=== PATIENT | female | born 1990 | race Caucasian/White ===

== ENCOUNTER 2019-10-18 16:23 | Emergency (ER) | payer BC, OTHER ==
[2019-10-18] MEDS ORDERED: Ondansetron PF 4 MG/2 ML Vial ONE ×2 (16:57→17:59)
[2019-10-18] MEDS ORDERED: Sodium Chloride 0.9% 1,000 ML ONE (16:57)
[2019-10-18] MEDS ORDERED: Ibuprofen 100 MG/5 ML UDCUP ONE (16:57)
[2019-10-18 17:35] LABS: BHCG - Serum Negative (NEGATIVE); Pregs Control Bar Appear? YES (CONTROL BAR)
[2019-10-18 17:44] LABS: ALT (SGPT) 27 U/L (8-55); AST (SGOT) 26 U/L (5-34); Albumin 4.3 g/dL (3.5-5.0); Alkaline Phosphatase 51 U/L (40-110); Anion Gap 15 mmol/L (10-20); BUN (Urea Nitrogen) 10 mg/dL (7.0-18.7); Bilirubin, Total 0.4 mg/dL (0.2-1.2); Calc. Creatinine Clearance 0 mL/min (70-130); Calcium 9.2 mg/dL (7.8-10.44); Carbon Dioxide 23 mmol/L (22-29); Chloride 101 mmol/L (98-107); Estimated GFR-MDRD 88; Globulin 3.5 g/dL (2.4-3.5); Glucose 91 mg/dL (70-105); Potassium 3.8 mmol/L (3.5-5.1); Protein, Total 7.8 g/dL (6.0-8.3); Sodium 135 mmol/L (136-145)
[2019-10-18 18:04] LABS: #Lymphocytes 0.9 thou/uL (1.20-3.40); #Monocytes 0.3 thou/uL (0.11-0.59); #Neutrophils 3.7 thou/uL (1.40-6.50); %Basophils 0.7 % (0.0-1.0); %Eosinophils 0.4 % (0.0-10.0); %Lymphocytes 18.4 % (21.0-51.0); %Monocytes 6.7 % (0.0-10.0); %Neutrophils 73.9 % (42.0-75.0); Hemoglobin 14.8 g/dL (12.0-16.0); Mean Corpuscular HGB CONC 33.4 g/dL (32.0-36.0); Mean Corpuscular Volume 86.7 fL (78.0-98.0); Mean Platelet Volume 10.7 fL (7.4-10.4); Platelet Count 219 thou/uL (130-400); RBC Distribution Width 10.6 % (11.5-14.5)
[2019-10-18 18:08] LABS: Bilirubin Negative (Negative); Blood, Urine Trace (Negative); Clarity Clear (Clear); Glucose, Urine (Dipstick) Negative (Negative); Ketone, Urine Negative (Negative); Leukocyte Negative (Negative); Nitrite Negative (Negative); Protein, Urine (Dipstick) Negative (Neg-Trace); Urobilinogen 0.2 mg/dL (Less than 2)
[2019-10-18 18:17] LABS: Bacteria/HPF 2+ HPF (None Seen); RBC/HPF 0-3 HPF (0-3); Specific Gravity, Urine 1.025 (1.005-1.030); WBC/HPF 0-3 HPF (0-3)
[2019-10-19 13:15] LABS: SARS-CoV-2 MS2 Positive; SARS-CoV-2 N Gene Negative; SARS-CoV-2 S Gene Negative; SARS-CoV-2 by NAA Not Detected (NotDetected); SARS-CoV-2 orf1ab Negative
== END 2019-10-18 18:19 | disposition home or self-care (01) ==
LOC: NAV ERS 16:23
DX: E86.0 Dehydration (principal); R50.9 Fever, unspecified; Z20.828 Contact with and (suspected) exposure to other viral communicable diseases; F90.9 Attention-deficit hyperactivity disorder, unspecified type
CPT/HCPCS: 80053; 81003; 81015; 84703; 85025; 87635; 94760; 96360; J2405; J7050; U0003

== ENCOUNTER 2019-10-25 16:22 | Inpatient (IN) | payer BC, OTHER ==
[2019-10-25 17:05] VITALS: BMI 34.0
[2019-10-25] MEDS ORDERED: Ondansetron PF 4 MG/2 ML Vial IVP PRN (18:11)
[2019-10-25] MEDS: Dextrose 5 % And 0.9 % NaCl 1,000 ML IV SCH (19:26)
[2019-10-26] MEDS: Ondansetron ODT 4 MG TAB PO SCH ×2 (00:01→05:31)
[2019-10-26] MEDS: Dextrose 5 % And 0.9 % NaCl 1,000 ML IV SCH ×2 (02:40→10:02)
[2019-10-26 06:16] LABS: #Basophils 0.1 thou/uL (0.0-0.2); #Eosinphils 0.1 thou/uL (0.0-0.7); #Lymphocytes 1.6 thou/uL (1.20-3.40); #Monocytes 0.6 thou/uL (0.11-0.59); #Neutrophils 3.1 thou/uL (1.40-6.50); %Eosinophils 2.1 % (0.0-10.0); %Monocytes 10.7 % (0.0-10.0); %Neutrophils 57.2 % (42.0-75.0); Hemoglobin 11.9 g/dL (12.0-16.0); Mean Corpuscular Hemoglobin 28.9 pg (27.0-31.0); Mean Corpuscular Volume 87.5 fL (78.0-98.0); Mean Platelet Volume 11.1 fL (7.4-10.4); Platelet Count 263 thou/uL (130-400); RBC Distribution Width 10.5 % (11.5-14.5); Red Blood Cell (RBC) Count 4.12 mill/uL (4.20-5.40); White Blood Cell (WBC) Count 5.4 thou/uL (4.8-10.8)
[2019-10-26 06:21] LABS: ALT (SGPT) 109 U/L (8-55); AST (SGOT) 75 U/L (5-34); Albumin 3.4 g/dL (3.5-5.0); Alkaline Phosphatase 37 U/L (40-110); Anion Gap 12 mmol/L (10-20); BUN (Urea Nitrogen) 6 mg/dL (7.0-18.7); Bilirubin, Total 0.4 mg/dL (0.2-1.2); Calc. Creatinine Clearance 147 mL/min (70-130); Calcium 8.3 mg/dL (7.8-10.44); Carbon Dioxide 24 mmol/L (22-29); Chloride 108 mmol/L (98-107); Estimated GFR-MDRD Greater than 90; Globulin 2.5 g/dL (2.4-3.5); Glucose 97 mg/dL (70-105); Potassium 3.4 mmol/L (3.5-5.1); Protein, Total 5.9 g/dL (6.0-8.3); Sodium 141 mmol/L (136-145)
[2019-10-26 07:09] VITALS: TEMP 97.5
[2019-10-26 08:48] VITALS: BP 126/76
[2019-11-02 12:10] LABS: Routine O & P Final report (.)
--- NOTE | 2019-11-10 15:34 | SS ---
DATE OF ADMISSION: 10/25/2019 DATE OF DISCHARGE: 10/26/2019 HOSPITAL COURSE: The patient is a 29-year-old white female, who had been seen in the emergency room previously for recurrent diarrhea that had continued for several days with progressive weakness, dehydration, resting tachycardia. She had been tested for COVID-19, was found to be negative. She has no history of any previous severe diarrhea or vomiting. She had no fever or chills. She did have weakness and some abdominal cramps. She has been taking Lomotil and Phenergan at home, up to every 4 hours with no relief. She had been only taking in liquids and had become progressively weaker. She, therefore, was admitted to the hospital and found to have on admission, temperature 97, pulse 78, respirations 18, O2 sats 96% on room air, blood pressure is 128/83. She was started on normal saline. Routine laboratories were drawn, showed her to have a white count of 5400, hematocrit 36, hemoglobin 11. Sodium was 141, potassium 3.4, chloride 108, bicarb 24, BUN is 6, creatinine 0.75. AST was 75, ALT 109, alkaline phosphatase , total protein 5.9, albumin 3.4. She had an ova and parasite done which was negative. Stool for bacteria was negative. She did have improvement with decreasing nausea, diarrhea, was able to eat better, felt much better by the second hospital day, was ready to go home. There was a concern that she might have had a viral gastroenteritis, hepatitis, which have caused her dehydration, and so hepatitis panel was done, which returned negative. She was feeling well, however, and wished to be discharged home and therefore was discharged home. Will have followup of her elevated liver function studies in one week. FINAL DIAGNOSES: Dehydration, recurrent nausea and vomiting and diarrhea, most likely related to virus, which may have been causing hepatitis, and we will repeat liver panel and monitor the patient's diarrhea in one week. Job ID: [id number]
== END 2019-10-26 12:15 | disposition home or self-care (01) | DRG 392 ==
LOC: OBSVTOIN 16:22 → NAV ACUTE 16:22
PROVIDERS: ADMIT Internal Medicine; ATTEND Internal Medicine
DX: A08.4 Viral intestinal infection, unspecified (principal); B19.9 Unspecified viral hepatitis without hepatic coma; E86.0 Dehydration; R19.7 Diarrhea, unspecified; R11.2 Nausea with vomiting, unspecified; Z20.828 Contact with and (suspected) exposure to other viral communicable diseases
CPT/HCPCS: 80053; 85025; 87177; J2405; J7042; Q0162